=== PATIENT | female | born 1940 | race Caucasian/White ===

== ENCOUNTER → 2016-07-26 | Outpatient (CLI) | payer OTHER | LOC: MMPC 11:11 | PROVIDERS: ATTEND Internal Medicine | DX: I25.799 Atherosclerosis of other coronary artery bypass graft(s) with unspecified angina pectoris (principal); E78.5 Hyperlipidemia, unspecified; R94.6 Abnormal results of thyroid function studies; R16.0 Hepatomegaly, not elsewhere classified; M06.9 Rheumatoid arthritis, unspecified | CPT/HCPCS: 99213; G0463 ==

== ENCOUNTER → 2016-07-29 | Outpatient (CLI) | payer OTHER ==
[2016-07-29 10:30] LABS: BUN/CREATININE RATIO 21.11 (6-20); C-REACTIVE PROTEIN 0.8 mg/dL (0.0-0.9); CALCIUM 9.6 mg/dL (8.7-10.7); CHOL/HDL RATIO 3.39 RATIO (0-4.0); LDL CHOLESTEROL,CALCULATED 131.6 mg/dL; SERUM ALBUMIN 3.9 g/dL (3.5-4.8)
[2016-07-29 10:44] LABS: FREE T4 (FREE THYROXINE) 1.07 ng/dL (0.93-1.71)
== END ==
LOC: MOB LAB 08:09
PROVIDERS: ATTEND Internal Medicine
DX: I25.729 Atherosclerosis of autologous artery coronary artery bypass graft(s) with unspecified angina pectoris (principal); E03.9 Hypothyroidism, unspecified; E78.5 Hyperlipidemia, unspecified; R16.0 Hepatomegaly, not elsewhere classified; M05.79 Rheumatoid arthritis with rheumatoid factor of multiple sites without organ or systems involvement; R94.6 Abnormal results of thyroid function studies
CPT/HCPCS: 36415; 80053; 80061; 84439; 84443; 84481; 86140; 86200; 86431

== ENCOUNTER → 2016-08-10 | Outpatient (CLI) | payer OTHER ==
[2016-08-10 10:51] LABS: BASOPHILS # (AUTO) 0.03 10*3/UL; BASOPHILS % (AUTO) 0.7 % (0-1); EOSINOPHILS # (AUTO) 0.08 10*3/UL; EOSINOPHILS % (AUTO) 1.9 % (0-8); HEMATOCRIT 46.7 % (37.0-47.0); HEMOGLOBIN 15.6 g/dL (12.0-16.0); LYMPHOCYTES # (AUTO) 1.65 10*3/uL; MEAN CORPUSCULAR HEMOGLOBIN 29.6 PG (27-31); MEAN CORPUSCULAR HGB CONC 33.4 g/dL (33-37); MEAN CORPUSCULAR VOLUME 88.6 FL (81-99); MEAN PLATELET VOLUME 8.8 FL (7.4-12.2); MONOCYTES # (AUTO) 0.47 10*3/UL (0.3-0.8); MONOCYTES % (AUTO) 11.1 % (5-15); NEUTROPHILS # (AUTO) 1.99 10*3/UL; NEUTROPHILS % (AUTO) 47.2 % (50-80); RED BLOOD COUNT 5.27 10^6/uL (4.20-5.40)
[2016-08-10 10:52] LABS: PLATELET MORPHOLOGY COMMENT NORMAL MORPHOLOGY (NORM); RBC MORPHOLOGY COMMENT NORMAL MORPHOLOGY (NORM); WBC MORPHOLOGY COMMENT NORMAL MORPHOLOGY (NORM)
[2016-08-10 12:30] LABS: ERYTHROCYTE SEDIMENTATION RATE 18 MM/HR (0-20)
[2016-08-17 16:16] LABS: APOLIPO E GENE RESULT Genotype: e3/e3 (()); APOLIPO E GENE SPECIMEN WB Whole Blood (())
[2016-08-17 16:19] LABS: APOLIPO GEN REFFERAL REASON SEE COMMENTS (())
== END ==
LOC: MOB LAB 08:55
PROVIDERS: ATTEND Internal Medicine
DX: D70.9 Neutropenia, unspecified (principal); E78.2 Mixed hyperlipidemia; I25.10 Atherosclerotic heart disease of native coronary artery without angina pectoris
CPT/HCPCS: 36415; 81401; 85025; 85652

== ENCOUNTER → 2016-08-24 | Outpatient (CLI) | payer OTHER ==
[2016-08-24 17:48] LABS: CLARITY,URINE CLEAR (CLEAR); COLOR,URINE YELLOW; GLUCOSE, URINE (UA) NEGATIVE (NEG); PH,URINE 5.5 (5.0-8.5); PROTEIN,URINE NEGATIVE (NEG); URINE SAMPLE TYPE VOID
[2016-08-24 17:49] LABS: BILIRUBIN,URINE NEGATIVE (NEG); NITRATE,URINE NEGATIVE (NEG); OCCULT BLOOD,URINE NEGATIVE (NEG); SQUAMOUS EPITHELIAL CELL,UR RARE; UROBILINOGEN,URINE 0.2 mg/dL (0.2)
== END ==
LOC: MOB LAB 14:45
PROVIDERS: ATTEND Internal Medicine
DX: R82.99 Other abnormal findings in urine (principal)
CPT/HCPCS: 81001; 99213